=== PATIENT | female | born 1935 | race Caucasian/White ===

== ENCOUNTER 2018-01-01 10:35 | Emergency (ER) | payer OTHER ==
[~2018-01-01 10:35] MED LIST: DILAUDID2 MG PO; EDLUAR10 MG PO; FLEXERIL5 MG PO; MELOXICAM15 MG PO; NAPROSYN500 MG PO; NEURONTIN300 MG PO; NORCO 5/3251 TABLET PO; NORVASC5 MG PO; PREDNISONE20 MG PO; SIMVASTATIN20 MG PO; TRAMADOL HCL50 MG PO; VALIUM5 MG PO
[2018-01-01 10:49] LABS: BASOPHIL (%) 0.7 % (0-1); EOSINOPHIL COUNT 0.1 K/uL (0-0.3); HEMATOCRIT 45.6 % (36.0-46.0); HEMOGLOBIN 14.7 G/DL (11.9-15.5); IMMATURE GRANULOCYTE (%) 1.4 % (0.0-0.7); LYMPHOCYTE (%) 32.3 % (15-42); LYMPHOCYTE COUNT 1.9 K/uL (1.0-2.8); MCH 27.2 PG (29.0-34.0); MCHC 32.2 G/DL (30.0-36.0); MCV 84.3 FL (83-99); MONOCYTE (%) 7.5 % (3-12); MONOCYTE COUNT 0.4 K/uL (0-0.8); NEUTROPHIL (%) 57.1 % (45-76); NEUTROPHIL COUNT 3.4 K/uL (1.8-6.4); PLATELET COUNT 262 K/uL (156-360); RED BLOOD COUNT 5.41 M/uL (3.80-5.20); WHITE BLOOD COUNT 5.9 K/uL (4.1-10.2)
[2018-01-01 11:00] LABS: AMYLASE 29 IU/L (1-118); CHLORIDE 105 mEq/L (99-109); POTASSIUM 3.5 mEq/L (3.7-5.4); SODIUM 143 mEq/L (136-147)
[2018-01-01 11:02] LABS: GLUCOSE 128 mg/dL (70-99)
[2018-01-01 11:05] LABS: SERUM ETHYL ALCOHOL < 10 mg/dL
[2018-01-01 11:06] LABS: CREATININE 0.8 mg/dL (0.6-1.3); GFR ESTIMATE (CALCULATED) > 59 mL/min/; UREA NITROGEN (BUN) 10 mg/dL (9-23)
[2018-01-01 11:09] LABS: LIPASE 8 U/L (1.0-51.0)
== END 2018-01-01 12:38 | disposition home or self-care (01) ==
LOC: TRA 10:35
PROVIDERS: Emergency Medicine
DX: S00.03XA Contusion of scalp, initial encounter (principal); K14.8 Other diseases of tongue; W00.0XXA Fall on same level due to ice and snow, initial encounter; S51.811A Laceration without foreign body of right forearm, initial encounter; M54.2 Cervicalgia; R42 Dizziness and giddiness
CPT/HCPCS: 70450; 72125; 72131; 73080; 73090; 80048; 81003; 82150; 83690; 85025; 86850; 86900; 86901; 99281; 99285; G0480